=== PATIENT | female | born 1950 | race Caucasian/White ===

== ENCOUNTER 2016-10-11 21:59 | Emergency (ER) | payer OTHER ==
[2016-10-11] MEDS ORDERED: NS 1,000 ML IV ONE (22:10)
[2016-10-11] MEDS ORDERED: ONDANSETRON 4 MG/2 ML VIAL IVP ONE (22:12)
--- NOTE | 2016-10-11 22:15 | EDPHY ---
H & P HPI/ROS: HPI CHIEF COMPLAINT: Found down HISTORY OF PRESENT ILLNESS: This patient very pleasant 66-year-old female she presents emergency room by EMS after she was found down in her private residence. She tells me that she developed some right-sided weakness around 6 o 'clock this evening or 4+ hours ago, this has since resolved however this caused her to fall down she tells me that she was trying to get to the bathroom to have a bowel movement however was unable to get there. She fell on the ground and laid on the ground for approximately 4+ hours eventually she locked onto her lab top and was able to Skype. And 911 was called. She presents emergency room she is alert and orient x4, she is a GCS 15, she tells me that the right-sided weakness has now went away and resolved. She tells me she denies having any weakness to her right side, however she does feel foggy, she does tell me that she feels slow to respond. Of note upon arrival here in the emergency room she has defecated all over herself. She feels nauseous. She denies chest pain shortness of breath or headache. She denies focal weakness. Past Medical History: Hypertension, thyroid disease Social History: Lives alone, locally in [place] Family History: noncontributory ROS REVIEW OF SYSTEMS: A comprehensive 10 point review of systems is otherwise negative aside from elements mentioned in the history of present illness. Exam Constitutional GCS 15, alert and orient x4, stool all over her, triage nursing summary reviewed, vital signs reviewed, awake/alert. Eyes normal conjunctivae and sclera, EOMI, PERRLA. HENT normal inspection, atraumatic, dry mucous membranes , no epistaxis, neck supple/ no meningismus, no raccoon eyes. Respiratory clear to auscultation bilaterally, normal breath sounds, no respiratory distress, no wheezing. Cardiovascular rate normal, regular rhythm, no murmur, no edema, distal pulses normal. Gastrointestinal soft, non-tender, no rebound, no guarding, normal bowel sounds, no distension, no pulsatile mass. Genitourinary no CVA tenderness. Genital exam: When godoy Placed: This patient has herpes present external vagina. Musculoskeletal no midline vertebral tenderness, full range of motion, no calf swelling, no tenderness of extremities, no meningismus, good pulses, neurovascularly intact. Skin pink, warm, & dry, no rash, skin atraumatic. Neurologic awake, alert and oriented x 3, AAOx3, moves all 4 extremities equally specifically she has good strength of her right upper 5/5 and right lower 5/5 extremity, motor intact, sensory intact, CN II-XII intact, normal cerebellar, normal vision, slow speech, no dysarthria, no stuttering of speech Psychiatric normal mood/affect. Heme/Lymph/Immune no lymphadenopathy. Differential Diagnosis: includes but is not limited to in a particular order, TIA, acute CVA, acute stroke, acute intraparenchymal hemorrhage, dehydration, electrolyte abnormality, cardiac arrhythmia acute PA, rhabdomyolysis, renal failure, syncope Medical Decision Making: patient presents emergency room after she was found down with slow speech, according to her she initially had right-sided arm and leg weakness. This has since resolved. She denies chest pain shortness of breath or headache at this time. She does feel nauseous. Patient will have an IV established placed a full manager cardiac will obtain an EKG, she will need a chest x-ray she will need a CT scan of her head blood work including CK for rhabdomyolysis will check a urine, troponin and hydrate her. At this time she has no focal neuro deficit she is somewhat slow to respond. Re-evaluation: EKG interpretation by me on record in [employer] system. Impression time of EKG 2243: This is sinus rhythm rate of 78, incomplete right bundle branch block , no ST elevation or significant ST depression, no T-wave abnormalities, normal intervals. ED x-ray chest one view: PULMONARY EDEMA PRESENT VERSUS UNDERLYING LUNG DISEASE. (patient has had two liters of fluid) CT scan of the head w/o. The results of the study are negative for anything acute. White matter disease visualize no acute bleed no acute infarct. The study was read by Dr. Nunez I viewed the images myself on the PACS system. 2334: I spoke with the hospitalist service Dr. Dasilva seen her accepts the admission for this patient. Unclear exactly what caused this patient to go down possible TIA given the reported right-sided weakness that is now resolved. She is getting an MRI at this time. Patient be admitted to a neuro bed. Currently at this time she is hemodynamically stable no acute distress. She does have a low speech pattern her EKG is nonischemic her troponin is negative her CT head does not show a bleed. Stable for admission to neuro bed. MRI of the brain without IV contrast. The results of the study are this shows acute infarct left basal ganglia inferior region, internal capsule. I discussed the results of this study with the radiologist Dr. Nunez. NIHSS: Initial NIHSS Upon time of arrival 1point (this is for mild-mod aphasia, no signficant limitations). NO right sided weakness TIME OF NIH 1020PM 2230: This patient is not a tPA candidate due to improvement of symptoms she has no right upper extremity and right lower extremity weakness on exam. Also she is not a tPA candidate due to down time being over 4 hours. 0020: I did go and re-evaluate this patient: Stroke Alert Called due to Progression of symptoms: Her speech seems to be becoming more slow and fragmented I am concerned she is having another acute stroke. At this time I have called a stroke alert will speak with [facility]. 1235: I spoke with Dr. Pena with [facility] she will see and evaluate the patient however she agrees that she is not a tPA candidate given how far out of the window she is an initial presentation of improving symptoms. She does recommend that we get a CT angiogram head and neck due to the patient having worsening stroke like symptoms at this time and there may be an occlusion on the CT angiogram head and neck. She will log onto the tele neurology monitor and evaluate the patient. 1245: Dr. Pena, recommends laying flat, ct angio/head/neck. Recommends blood pressure being above 140 systolic. She states with lacunar infarct it can be very blood pressure dependent. Usually lying flat helps. She would like to be called back if there is a large vessel occlusion. She does agree with me this patient is not a tPA candidate is outside the window and had initial improvement of symptoms. On her exam she does endorse that the patient's right side is weak more then left however can move everything and is moving her right side. Repeat NIHSS: 1220AM: 5 (dysarthria +1, and Drift of RUE and RLE touches bed 2+ x 2) CT scan of the angiogram head and neck with IV contrast. The results of the study are this is negative for acute large vessel occlusion, unremarkable CT angiogram. The study was read by Dr. Boothe. I viewed the images myself on the PACS system. 0147: Dr. Pena has accepted this patient to [facility]. Patient be transferred by ground ambulance to their neuro ICU. No indication to fly her or critical care transport as she is completely stable and she did not get tPA. Reason for transfer is ICU monitoring for an acute stroke. We do not have an ICU bed available here at [facility]. Dr. Pena with Neurology at [facility] has accepted this patient to their facility. Appropriate transfer will be set up. 0154: Dr. Pena Has Accepted. to Neuro/ICU. Will set-up Transfer. 0155: I have canceled the admission to [facility] as we have no ICU beds. Patient be transferred to [facility] neuro ICU. At this time her neurological exam is not changed she is hemodynamically stable blood pressure 150 systolic her right-sided weakness and dysarthria is at her baseline that she has been at this evening no worsening of condition. Source: Patient, EMS Constitutional: Initial Vital Signs Temperature (C) 36.3 C 10/11/16 22:00 Heart Rate 81 10/11/16 22:00 Respiratory Rate 16 10/11/16 22:00 Blood Pressure 142/74 H 10/11/16 22:00 O2 Sat (%) 96 10/11/16 22:00 O2 Delivery Mode Nasal Cannula O2 (L/minute) 2 Allergies/Adverse Reactions: No Known Allergies Allergy (Unverified 10/11/16 22:55) Home Medications: Medication Instructions Recorded Aspirin 10/11/16 Atenolol 10/11/16 Crestor 10/11/16 HCTZ (*) 10/11/16 Synthroid 10/11/16 Medical Decision Making - Data Points Laboratory Results: Laboratory Results 10/11/16 22:27 10/11/16 22:27 10/11/16 10/11/16 22:27 22:22 WBC 16.16 H 10^3/uL (3.80-9.50) RBC 5.80 H 10^6/uL (4.18-5.33) Hgb 16.3 g/dL (12.6-16.3) Hct 47.3 H % (38.0-47.0) MCV 81.6 fL (81.5-99.8) MCH 28.1 pg (27.9-34.1) MCHC 34.5 g/dL (32.4-36.7) RDW 15.4 H % (11.5-15.2) Plt Count 352 10^3/uL (150-400) MPV 9.8 fL (8.7-11.7) Neut % (Auto) 85.1 H % (39.3-74.2) Lymph % (Auto) 11.1 L % (15.0-45.0) [place] % (Auto) 2.6 L % (4.5-13.0) Eos % (Auto) 0.2 L % (0.6-7.6) Baso % (Auto) 0.4 % (0.3-1.7) Nucleat RBC Rel Count 0.0 % (0.0-0.2) Absolute Neuts (auto) 13.73 H 10^3/uL (1.70-6.50) Absolute Lymphs (auto) 1.80 10^3/uL (1.00-3.00) Absolute Monos (auto) 0.42 10^3/uL (0.30-0.80) Absolute Eos (auto) 0.04 10^3/uL (0.03-0.40) Absolute Basos (auto) 0.07 10^3/uL (0.02-0.10) Absolute Nucleated RBC 0.00 10^3/uL (0-0.01) Immature Gran % 0.6 % (0.0-1.1) Immature Gran # 0.10 10^3/uL (0.00-0.10) PT 13.3 SEC (12.0-15.0) INR 1.02 (0.83-1.16) APTT 29.6 SEC (23.0-38.0) VBG Lactic Acid 2.2 H mmol/L (0.7-2.1) Sodium 132 L mEq/L (134-144) Potassium 3.9 mEq/L (3.5-5.2) Chloride 94 L mEq/L (97-110) Carbon Dioxide 26 mEq/l (22-31) Anion Gap 12 mEq/L (8-16) BUN 15 mg/dL (7-23) Creatinine 0.7 mg/dL (0.6-1.0) Estimated GFR > 60 Glucose 200 H mg/dL (70-100) Calcium 9.4 mg/dL (8.5-10.4) Magnesium 1.7 mg/dL (1.6-2.3) Total Bilirubin 0.6 mg/dL (0.1-1.4) Conjugated Bilirubin 0.3 mg/dL (0.0-0.5) Unconjugated Bilirubin 0.3 mg/dL (0.0-1.1) AST 18 IU/L (14-46) ALT 32 IU/L (9-52) Alkaline Phosphatase 87 IU/L (38-126) Creatine Kinase 44 IU/L (0-156) CK-MB (CK-2) Fraction 0.80 ng/mL (0-3.19) Troponin I < 0.012 ng/mL (0-0.034) NT-Pro-B Natriuret Pep 171 H pg/mL (0-125) Total Protein 7.2 g/dL (6.3-8.2) Albumin 4.2 g/dL (3.5-5.0) Lipase 112.0 IU/L (23-300) Ethyl Alcohol < 10 mg/dL (0-10) Medications Given: Discontinued Medications Sodium Chloride (Ns) 1,000 mls @ 0 mls/hr IV ONCE ONE PRN Reason: Wide Open Stop: 10/11/16 22:11 Last Admin: 10/11/16 22:29 Dose: 1,000 mls Sodium Chloride (Ns) 1,000 mls @ 0 mls/hr IV ONCE ONE PRN Reason: Wide Open Stop: 10/12/16 00:53 Last Admin: 10/12/16 00:45 Dose: 1,000 mls Ondansetron HCl (Zofran) 4 mg IVP EDNOW ONE Stop: 10/11/16 22:13 Last Admin: 10/11/16 22:30 Dose: 4 mg Departure - Dep[facility] Clinical Impression: Acute CVA (cerebrovascular accident) TIA (transient ischemic attack) Qualifiers: Transient cerebral ischemia type: unspecified Qualifier Code: (G45.9) Transient cerebral ischemic attack, unspecified Syncope Qualifiers: Syncope type: unspecified Qualifier Code: (R55) Syncope and collapse Condition: Fair
--- NOTE | 2016-10-11 22:38 | DX ---
AP upright portable chest October 11, 2016 at 2220 hours Reason for examination: Altered mental status in a 66-year-old female; no previous studies are availa ble for comparison. FINDINGS: The heart is borderline enlarged and there is mild pulmonary venous hypertension. Peribronc hial cuffing is noted. Diffuse interstitial prominence is seen possibly reflecting either pending pul monary edema or interstitial lung disease. Aortic tortuosity is noted. Spinal degenerative changes ar e seen. No significant pleural effusion is identified. IMPRESSION: 1. Suspect low-grade congestive heart failure. 2. Query airways disease. 3. Interstitial prominence could reflect cardiogenic abnormality or underlying interstitial lung dise ase.
--- NOTE | 2016-10-11 22:46 | CPEKG ---
Heart Rate: 78 RR Interval: 769 P-R Interval: 208 QRSD Interval: 110 QT Interval: 408 QTC Interval: 465 P [place]: 47 QRS [place]: 15 T Wave [place]: 34 EKG Severity - ABNORMAL ECG - EKG Impression: SINUS RHYTHM EKG Impression: PROBABLE LEFT ATRIAL ABNORMALITY EKG Impression: INCOMPLETE RIGHT BUNDLE BRANCH BLOCK Electronically Signed By: Santos Mckenna 11-Oct-2016 22:51:43
[2016-10-11 22:47] LABS: % IMMATURE GRANULYOCYTES 0.6 % (0.0-1.1); ADD DIFF? NO; ADD MORPH? NO; ADD SCAN? NO; ATYPICAL LYMPHOCYTE FLAG 0 (0-99); FRAGMENT RBC FLAG 0 (0-99); HEMATOCRIT 47.3 % (38.0-47.0); HEMOGLOBIN 16.3 g/dL (12.6-16.3); LEFT SHIFT FLG 0 (0-99); LIPEMIA HEMOLYSIS FLAG 90 (0-99); MEAN CELL HEMOGLOBIN 28.1 pg (27.9-34.1); MEAN CELL HEMOGLOBIN CONCENTR. 34.5 g/dL (32.4-36.7); MEAN CELL VOLUME 81.6 fL (81.5-99.8); MEAN PLATELET VOLUME 9.8 fL (8.7-11.7); PLATELET CLUMPS FLAG 0 (0-99); PLATELET COUNT 352 10^3/uL (150-400); RED CELL DISTRIBUTION WIDTH 15.4 % (11.5-15.2)
[2016-10-11 22:56] LABS: INR 1.02 (0.83-1.16); PROTIME(PATIENT) 13.3 SEC (12.0-15.0)
--- NOTE | 2016-10-11 22:56 | CT ---
CT Brain (Without Contrast) History: 66-year-old female found down initially presented with right-sided weakness which has subse quently resolved. No previous studies are available for comparison.. Technique: Axial computed tomographic images of the brain are obtained from the base to the vertex w ithout contrast. Images are obtained at 5 mm thickness and reformatted at 1.5 mm. Sagittal and pineda l reformations are performed and the study is reviewed at multiple window/level settings. Dose reduct ion techniques were utilized. Findings: Ventricles, cisterns, and sulci are mildly widened consistent with age appropriate atrophy . There is no hydrocephalus, midline shift/herniation, or epidural/subdural hematoma. Physiologic pankaj cifications are noted. No intraparenchymal hemorrhage or mass effect is identified. Hypodensities are noted in the periventricular and subcortical white matter bilaterally. No definite acute cortical is chemia is identified. Cerebrovascular atherosclerosis is identified. Bone windows demonstrate no disp laced fractures. Paranasal sinuses and mastoid air cells are clear. Impression: 1. Elderly brain with mild age-appropriate atrophy and probable white matter small vessel disease. 2. Negative for hemorrhage. 3. See above report for additional findings. A preliminary report was called to Dr. Keith Duggan at 2250 hours in the Emergency Department.
[2016-10-11 22:57] LABS: APTT 29.6 SEC (23.0-38.0)
[2016-10-11 23:06] LABS: ALANINE AMINOTRANSFERASE 32 IU/L (9-52); ALBUMIN 4.2 g/dL (3.5-5.0); ALKALINE PHOSPHATASE 87 IU/L (38-126); ANION GAP 12 mEq/L (8-16); ASPARTATE AMINOTRANSFERASE 18 IU/L (14-46); BILIRUBIN,TOTAL 0.6 mg/dL (0.1-1.4); BILIRUBIN-CONJUGATED 0.3 mg/dL (0.0-0.5); BILIRUBIN-UNCONJUGATED 0.3 mg/dL (0.0-1.1); CALCIUM 9.4 mg/dL (8.5-10.4); CARBON DIOXIDE 26 mEq/l (22-31); CHLORIDE 94 mEq/L (97-110); CREATININE 0.7 mg/dL (0.6-1.0); ETHANOL SERUM < 10 mg/dL (0-10); GLOMERULAR FILTRATION RATE > 60; GLUCOSE 200 mg/dL (70-100); MAGNESIUM 1.7 mg/dL (1.6-2.3); POTASSIUM 3.9 mEq/L (3.5-5.2); SODIUM 132 mEq/L (134-144); TOTAL PROTEIN 7.2 g/dL (6.3-8.2)
[2016-10-11 23:18] LABS: TROPONIN I < 0.012 ng/mL (0-0.034)
[2016-10-11 23:26] VITALS: TEMP 97.9
[2016-10-11] MEDS ORDERED: ACETAMINOPHEN 325 MG TAB PO PRN (23:31)
[2016-10-11] MEDS ORDERED: ONDANSETRON DISINTEGRATING 4 MG TAB PO PRN (23:31)
[2016-10-11] MEDS ORDERED: ONDANSETRON 4 MG/2 ML VIAL IVP PRN (23:31)
[2016-10-11] MEDS ORDERED: NS 1,000 ML IV SCH (23:45)
--- NOTE | 2016-10-12 00:14 | MR ---
MRI of the Brain (Without Contrast) Clinical Indication: Altered mental status in a 66-year-old female with history of recent right-sided weakness. Technique: T1-weighted images were acquired axially and sagittally from the foramen magnum to the ve rtex. Axial FLAIR, susceptibility-weighted, fast T2-weighted, and diffusion-weighted axial images we re obtained without contrast. Findings: There is a focal area of oval restricted diffusion in the left centrum semiovale and upper aspect of left basal ganglia adjacent to the lateral ventricle. This would be consistent with a focal area of acute ischemia. No associated hemorrhage is identified and there is no significant mass effe ct. No other ischemic regions are identified. Multiple areas of punctate white matter T2 T2 hyperinte nsity are seen involving periventricular and subcortical white matter bilaterally consistent with sma ll vessel ischemic disease. There is mild age-appropriate atrophy. No extra-axial fluid collections a re identified. Midline structures are in normal positions. Normal flow-voids are seen in the vascular structures. No sinus opacification is identified. IMPRESSION: 1. Focal region of restricted diffusion in the left centrum semiovale and upper aspect of left basal ganglia consistent with a focal area of acute ischemia. 2. Numerous focal areas of white matter T2 hyperintensity bilaterally consistent with small vessel is chemic gliotic foci. A preliminary report was called to Dr. Keith Duggan at 1215 hours in the Emergency Department.
[2016-10-12 00:25] LABS: COLOR YELLOW; LEUKOCYTE ESTERASE,URINE NEGATIVE (NEGATIVE); NITRITE,URINE NEGATIVE (NEGATIVE)
[2016-10-12] MEDS ORDERED: IOPAMIDOL (ISOVUE 370) 100 ML BTL IV ONE (00:40)
[2016-10-12] MEDS ORDERED: NS 1,000 ML IV ONE (00:52)
[2016-10-12 01:23] VITALS: RESP 16
[2016-10-12 04:26] VITALS: BP 145/89; PULSE 79; O2SAT 96
[2016-10-12] MEDS ORDERED: ASPIRIN 325 MG TAB PO SCH (09:00)
[2016-10-12] MEDS ORDERED: ASPIRIN EC 325 MG TAB PO SCH (09:00)
--- NOTE | 2016-10-12 12:00 | CT ---
CT Angiography of the Head Clinical Indications: CVA. R29.818 Neurological changes strongly suggesting intracerebral aneurysm. Technique: During automated power injection of 85 mL of Isovue-370, thinly collimated spiral (volume tric) multidetector helical CT was performed through the head. Independent three-dimensional [employer] workstation was used for additional manipulations of images by the radiologist. Dose reduction tech niques were utilized. Findings: The [place] and its branches are normal. No evidence of aneurysm of vascular malf ormation. No occlusions are found. Impression: Normal. CT angiogram of the [place]. The study was performed as an emergency on-call case and discussed by telephone with Dr. Duggan at 1: 20 AM. TThe final interpretation is concordant with the original communication.
--- NOTE | 2016-10-12 12:06 | CT ---
CT Angiogram Neck History: CVA.. Comparison: MRI brain October 11, 2016.. Technique: Axial contrast-enhanced images were obtained from the skull base through the thoracic inle t following the uneventful intravenous administration of 85 mL Isovue-370. Multiplanar reformations were performed. Dose reduction techniques were utilized. Findings: The carotid bifurcations are widely patent bilaterally, with minimal calcified plaque formation bilat erally. No evidence of flow-limiting stenosis. Internal carotid arteries are widely patent bilaterall y. The vertebral arteries are also widely patent bilaterally. Impression: Negative CT angiogram of the carotid and vertebral basilar system in the neck. No evidenc e of flow-limiting stenosis The study was performed as an emergency on-call case and discussed by telephone with Dr. Duggan at 12 0 hrs. The final interpretation is concordant with the original communication. . Stenoses are calculated using [place] Symptomatic Carotid Endarterectomy Trial (NASCET) criter ia.
== END 2016-10-12 02:30 | disposition short-term general hospital (02) ==
LOC: EDUNIT# → UNDOADMIN 23:32
DX: I63.9 Cerebral infarction, unspecified (principal); I10 Essential (primary) hypertension
CPT/HCPCS: 70450; 70496; 70498; 70551; 71010; 93005; 96361; 96374; 99285; J2405; Q9967; 80305; 82947-QW; G0480

== ENCOUNTER → 2016-11-12 | Outpatient (CLI) | payer OTHER | LOC: BHFA 10:30 | PROVIDERS: ATTEND Internal Medicine Cardiovascular Disease | DX: I71.2 Thoracic aortic aneurysm, without rupture (principal) ==

== ENCOUNTER 2016-11-25 07:32 | Day surgery (SDC) | payer OTHER ==
[2016-11-25] MEDS ORDERED: diphenhydrAMINE 25 MG CAP PO ONE ×2 (07:34→07:55)
[2016-11-25] MEDS ORDERED: DIAZEPAM 5 MG TAB PO ONE (07:34)
[2016-11-25] MEDS ORDERED: FAMOTIDINE 20 MG TAB PO ONE (07:34)
[2016-11-25] MEDS ORDERED: NS 1,000 ML IV ONE (07:34)
[2016-11-25] MEDS ORDERED: ASPIRIN EC 325 MG TAB PO ONE ×2 (07:34→07:55)
--- NOTE | 2016-11-25 07:54 | CPEKG ---
Heart Rate: 77 RR Interval: 779 P-R Interval: 164 QRSD Interval: 94 QT Interval: 384 QTC Interval: 435 P [place]: 53 QRS [place]: 10 T Wave [place]: 28 EKG Severity - NORMAL ECG - EKG Impression: SINUS RHYTHM Preliminary Awaiting MD Review
[2016-11-25] MEDS ORDERED: FAMOTIDINE 20 MG TAB ONE (07:55)
[2016-11-25] MEDS ORDERED: DIAZEPAM 5 MG TAB ONE (07:55)
[2016-11-25 08:14] LABS: % IMMATURE GRANULYOCYTES 0.2 % (0.0-1.1); ABSOLUTE IMMATURE GRANULOCYTES 0.03 10^3/uL (0.00-0.10); ADD DIFF? NO; ADD MORPH? NO; ADD SCAN? NO; ATYPICAL LYMPHOCYTE FLAG 0 (0-99); FRAGMENT RBC FLAG 20 (0-99); HEMATOCRIT 43.2 % (38.0-47.0); HEMOGLOBIN 14.3 g/dL (12.6-16.3); LEFT SHIFT FLG 0 (0-99); LIPEMIA HEMOLYSIS FLAG 80 (0-99); MEAN CELL HEMOGLOBIN 27.4 pg (27.9-34.1); MEAN CELL HEMOGLOBIN CONCENTR. 33.1 g/dL (32.4-36.7); MEAN CELL VOLUME 82.8 fL (81.5-99.8); MEAN PLATELET VOLUME 10.9 fL (8.7-11.7); PLATELET CLUMPS FLAG 20 (0-99); PLATELET COUNT 264 10^3/uL (150-400); RED BLOOD CELL COUNT 5.22 10^6/uL (4.18-5.33); RED CELL DISTRIBUTION WIDTH 15.6 % (11.5-15.2)
[2016-11-25 08:31] LABS: ANION GAP 14 mEq/L (8-16); CALCIUM 9.7 mg/dL (8.5-10.4); CARBON DIOXIDE 23 mEq/l (22-31); CHLORIDE 106 mEq/L (97-110); CHOLESTEROL 93 mg/dL (140-220); CHOLESTEROL/HDL RATIO 1.79 RATIO (1.00-4.44); CREATININE 0.8 mg/dL (0.6-1.0); GLOMERULAR FILTRATION RATE > 60; GLUCOSE 144 mg/dL (70-100); HIGH DENSITY LIPOPROTEIN 52 mg/dL (40-85); LDL/HDL RATIO 0.44 RATIO (1.00-3.22); LOW DENSITY LIPOPROTEIN 23 mg/dL (80-100); MAGNESIUM 1.8 mg/dL (1.6-2.3); NON-HIGH DENSITY LIPOPROTEIN 41 mg/dL (90-129); POTASSIUM 4.2 mEq/L (3.5-5.2); SODIUM 143 mEq/L (134-144); TRIGLYCERIDE 93 mg/dL (35-135); VERY LOW DENSITY LIPOPROTEINS 18 mg/dL (8-25)
[2016-11-25] MEDS ORDERED: MIDAZOLAM 2 MG/2 ML VIAL ONE (08:39)
[2016-11-25] MEDS ORDERED: fentaNYL 100 MCG/2 ML INJ ONE ×2 (08:39→09:45)
[2016-11-25] MEDS ORDERED: LIDOCAINE 1% 30 ML SDV ONE ×2 (08:39→09:45)
[2016-11-25] MEDS ORDERED: IOPAMIDOL (ISOVUE-370) 150 ML BTL IV ONE (08:40)
[2016-11-25 08:54] LABS: INR 1.03 (0.83-1.16); PROTIME(PATIENT) 13.4 SEC (12.0-15.0)
--- NOTE | 2016-11-25 13:51 | CPIP ---
DATE OF PROCEDURE: 11/25/2016 PROCEDURES: 1. Coronary angiography. 2. Left ventriculography. INDICATION: This coronary angiography is being performed in anticipation of thoracic aortic aneurys m repair. ACCESS: Patient was prepped and draped in a sterile fashion. 1% lidocaine was used to anesthetize the left inguinal region. A 6-Thai introducer sheath was placed selectively into the left common femoral artery via modified Seldinger technique. CORONARY ANGIOGRAPHY: A 6-Thai JL4 was advanced to the left main coronary artery and images obtai ian. The left main coronary artery bifurcated into an LAD and circumflex coronary arteries. The le ft main coronary artery appeared normal. The left anterior descending coronary artery gave rise to 1 prominent diagonal branch. The left anterior descending coronary artery had a segmental 30% steno sis in the proximal segment and a segmental 20% stenosis in the distal segment. The diagonal artery appeared normal. The circumflex coronary artery is a moderate-sized vessel. The circumflex pineda ry artery is nondominant. The circumflex coronary artery gave rise to 2 OM branches. The circumfle x coronary artery had mild luminal regularities throughout. There is no stenosis greater than 15%. The first OM artery had a proximal 10% stenosis present. The second OM artery had a proximal 20% s tenosis present. A 6-Thai JR4 was advanced to the right coronary artery and images obtained. The right coronary artery is dominant. The right coronary artery had mild diffuse disease in the mid t o distal segments. There is no stenosis greater than 20%. LEFT VENTRICULOGRAPHY: A 6-Thai pigtail catheter was advanced in the left ventricle and images ob tained. Left ventricle is normal in size and had normal systolic function, estimated ejection fract ion of 60%. Left ventricular end-diastolic pressure was 13 mmHg. The ascending aorta appeared to b e significantly dilated during imaging. COMPLICATIONS: None. CONCLUSIONS: 1. Mild coronary artery disease without flow limitation. 2. Normal left ventricular size and systolic function. /[id number]/MODL
== END 2016-11-25 13:45 | disposition home or self-care (01) ==
LOC: FCATH 07:32
PROVIDERS: ATTEND Internal Medicine Cardiovascular Disease
PROC: B2111ZZ Fluoroscopy of Multiple Coronary Arteries using Low Osmolar Contrast (ICD-10-PCS; principal; 2016-11-25)
PROC: B2151ZZ Fluoroscopy of Left Heart using Low Osmolar Contrast (ICD-10-PCS; principal; 2016-11-25)
PROC: 4A023N7 Measurement of Cardiac Sampling and Pressure, Left Heart, Percutaneous Approach (ICD-10-PCS; principal; 2016-11-25)
DX: Z01.810 Encounter for preprocedural cardiovascular examination (principal); I71.2 Thoracic aortic aneurysm, without rupture
CPT/HCPCS: C1760; J1644; J2250; J3010; Q9967

== ENCOUNTER 2016-12-26 06:58 | Inpatient (IN) | payer OTHER ==
[2016-12-24 16:10] LABS: HEMOGLOBIN A1C 7.1 % (4.0-6.0)
[~2016-12-26 06:58] MED LIST: ADENOSINE 6 MG/2 ML VIAL ONE; ALBUMIN 5% 250 ML BOTTLE IV ONE; AMINOCAPROIC ACID 5 GM/20 ML VIAL IV ONE; AMINOCAPROIC ACID 5 GM/20 ML VIAL ONE; AMIODARONE HCL 150 MG/3 ML VIAL ONE; CALCIUM CHLORIDE 1 GM/10 ML INJ ONE; CITRATE DEXTROSE SOLN 500 ML BAG MISC ONE; CITRATE DEXTROSE SOLN 500 ML BAG ONE; DOPamine/DEXTROSE/250 ML BAG IV ONE; HEPARIN 10,000 UNIT/10 ML MDV ONE; INSULIN REGULAR HUMAN 100 UNIT in NS 100 ML IV ONE; LIDOCAINE 1% 2 ML INJ ONE; LIDOCAINE 1% 5 ML SDV ID PRN; LIDOCAINE 2% 100 MG/5 ML SYR ONE; MAGNESIUM SULFATE 1 GM/2 ML VIAL ONE; MANNITOL 25% 12.5 GM/50 ML VIAL IV ONE; MILRINONE/DEXTROSE/100 ML BAG IV ONE; MUPIROCIN 2% 22 GM OINT NS ONE; NA BICARBONATE 50 MEQ/50 ML VIAL ONE; NOREPINEPHRINE BITARTRATE 16 MG in NS 250 ML IV ONE; NS 1,000 ML IV ONE; PHENYLEPHRINE HCL 50 MG in NS 250 ML IV ONE; POTASSIUM Cl (KCl) 20 MEQ/50 ML BAG IV ONE; PROTAMINE SULFATE 50 MG/5 ML VIAL IVP ONE; SODIUM BICARBONATE 20 MEQ, LIDOCAINE 1% 10 ML in NORMOSOL-R 1,000 ML MISC ONE; ceFAZolin 1 GM VIAL ONE; ceFAZolin 2 GM/DEXTROSE 100 ML IV ONE; methylPREDNISolone SOD SUCC 1 GM/8 ML VIAL ONE; niCARdipine/NACL 200 ML IV SCH; niCARdipine/NACL/200 ML BAG IV ONE
[2016-12-26] MEDS ORDERED: LIDOCAINE 1% 5 ML SDV ID PRN (06:59)
[2016-12-26] MEDS ORDERED: LR 1,000 ML IV ONE (06:59)
[2016-12-26] MEDS ORDERED: MINERAL OIL 10 ML VIAL TP ONE (08:03)
[2016-12-26] MEDS ORDERED: PROPOFOL/EMULSION 500 MG/50 ML BOTTLE IV ONE ×3 (08:20→11:39)
[2016-12-26] MEDS ORDERED: SUFentanil 250 MCG/5 ML AMP ONE (08:20)
[2016-12-26] MEDS ORDERED: MIDAZOLAM 2 MG/2 ML VIAL ONE (08:28)
[2016-12-26] MEDS ORDERED: ROCURONIUM 100 MG/10 ML VIAL ONE (10:31)
[2016-12-26] MEDS ORDERED: MAGNESIUM SULF 2 GM/WATER 50 ML BAG IV ONE (13:02)
[2016-12-26] MEDS ORDERED: ONDANSETRON 4 MG/2 ML VIAL ONE (13:09)
[2016-12-26] MEDS ORDERED: SUGAMMADEX SODIUM 200 MG/2 ML VIAL IVP ONE (13:10)
[2016-12-26] MEDS ORDERED: SKIN ADHESIVE (DERMABOND) 1 EACH TP ONE (13:12)
[2016-12-26] MEDS ORDERED: SODIUM CL NASAL 45 ML BTL EACHNARE PRN (13:15)
[2016-12-26] MEDS ORDERED: POLYETHYLENE GLYCOL 3350 17 GM PKT PO PRN (13:15)
[2016-12-26] MEDS ORDERED: D50W 25 GM/50 ML SYR IVP PRN (13:15)
[2016-12-26] MEDS ORDERED: NS 1,000 ML IV SCH (13:15)
[2016-12-26] MEDS ORDERED: METOCLOPRAMIDE 10 MG/2 ML VIAL IVP PRN (13:15)
[2016-12-26] MEDS ORDERED: ONDANSETRON 4 MG/2 ML VIAL IVP PRN (13:15)
[2016-12-26] MEDS ORDERED: LACTULOSE 20 GM/30 ML UDCUP PO PRN (13:15)
[2016-12-26] MEDS ORDERED: BISACODYL 10 MG SUPP PR PRN (13:15)
[2016-12-26] MEDS ORDERED: MEPERIDINE 25 MG/ML SYR IVP PRN (13:15)
[2016-12-26] MEDS ORDERED: MAGNESIUM SULF 2 GM/WATER 50 ML IV ONE (13:15)
[2016-12-26] MEDS ORDERED: CEPACOL LOZENGE PO PRN (13:15)
[2016-12-26] MEDS ORDERED: ACETAMINOPHEN 650 MG SUPP PR PRN (13:15)
[2016-12-26] MEDS ORDERED: PANTOPRAZOLE SODIUM 40 MG in NS 100 ML IV ONE (13:15)
[2016-12-26] MEDS ORDERED: ACETAMINOPHEN 325 MG TAB PO PRN (13:15)
[2016-12-26] MEDS ORDERED: MAGNESIUM HYDROXIDE 30 ML UDCUP PO PRN (13:15)
[2016-12-26] MEDS ORDERED: ONDANSETRON DISINTEGRATING 4 MG TAB PO PRN (13:15)
[2016-12-26] MEDS ORDERED: INSULIN REGULAR HUMAN 100 UNIT in NS 100 ML IV SCH (13:30)
--- NOTE | 2016-12-26 14:03 | POSTOPPROG ---
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
--- NOTE | 2016-12-26 14:11 | CPEKG ---
Heart Rate: 79 RR Interval: 759 P-R Interval: 188 QRSD Interval: 92 QT Interval: 476 QTC Interval: 546 P [place]: 83 QRS [place]: 79 T Wave [place]: 74 EKG Severity - ABNORMAL ECG - EKG Impression: SINUS RHYTHM EKG Impression: MINIMAL ST DEPRESSION, ANTERIOR LEADS EKG Impression: PROLONGED QT INTERVAL Electronically Signed By: Azam Roper 26-Dec-2016 16:26:59
--- NOTE | 2016-12-26 15:31 | GOP ---
[f rep st] OPERATIVE REPORT DATE OF OPERATION: 12/26/2016 SURGEON: Migel Mary DO ARBORICULTURIST: Bryce Murphy PA-C. ANESTHESIOLOGIST: Uri Bowman MD. PREOPERATIVE DIAGNOSIS: 1. Ascending, transverse, and descending thoracic aneurysm with emely-aorta syndrome. 2. Moderate aortic insufficiency. POSTOPERATIVE DIAGNOSIS: 1. Ascending, transverse, and descending thoracic aneurysm with emely-aorta syndrome. 2. Moderate aortic Insufficiency. 3. Evidence of atherosclerotic plaque in the transverse arch. PROCEDURE PERFORMED: 1. Hemiarch replacement and ascending aorta replacement under circulatory arrest with low-flow perf usion of the brain with antegrade cerebral perfusion. 2. Sinotubular junction reduction for correction of aortic insufficiency. 3. AtriClip application to the left atrial appendage. FINDINGS: INDICATIONS: This patient presented with a stroke several months prior with hemiparesis. She under went rehab with almost complete resolution of her hemiparetic state. During that evaluation, she wa s found to have a large 5-1/2 to 6 cm ascending aorta. She was sent to dc for repair. CT scan reve aled a large ascending, moderate-sized transverse, and a moderate-sized thoracoabdominal aneurysm. Catheterization revealed no significant coronary disease. She had moderate aortic insufficiency wit h a trileaflet valve. She was consented for surgery. DESCRIPTION OF PROCEDURE: She was brought to the operating room, intubated. Monitoring lines were placed. She was prepped and draped in sterile classical manner. The right axillary artery was init ially exposed. It was a soft vessel. We then exposed the aorta through a sternotomy, which was sonu te thin-walled and bluish in discoloration. It was most aneurysmal in the midportion; it tapered to 4 cm at the arch, where it remained 4 cm across the arch and then grew to 4-1/2 on the descending t o 5. Initially, I was going to do an elephant trunk procedure, however, after re-evaluating her kana cending thoracic aorta, with her comorbidities, I felt that the safest, most expeditious would be to do a hemiarch replacement, reducing the transverse arch, and in the future, if necessary, we could transpose the left subclavian to the carotid and do an endo graft in 8 or 10 years, if necessary, wi th serial observation in the interim. After heparinization, I sewed an 8 mm Hemashield graft end-to -side to the axillary artery without difficulty. It was connected to an antegrade catheter. Right atrial cannula was placed, as were antegrade and retrograde cardioplegia. Transesophageal echo reve aled moderate aortic insufficiency with a trileaflet valve. The sinotubular junction was markedly d isplaced and widened. Cardiopulmonary bypass was begun. Intermittent antegrade and retrograde card ioplegia were performed, while systemic cooling to electrical quiescence on the EEG was obtained. W e then perfused for a while longer than that, with nasopharyngeal temperatures below 20. During yong t time, we inspected the aortic valve, which was trileaflet. There was good coaptation, but obvious ly markedly displaced sinotubular junction and commissures. I felt that reducing the sinotubular ju ncture would correct most of her aortic insufficiency. When she was cold enough, we then placed her in deep Trendelenburg. I put a clamp across the base of the innominate artery and continued to per fuse the brain at 10 cc/kg, with a right radial A line reading pressures of 30 to 50. The head had been packed in ice. Steroids and propofol were given. We then fashioned a 24 mm Hemashield graft i n a beveled fashion, and sutured that to the arch, extending beyond the left subclavian, identifying the vagus and recurrent laryngeal nerves and preserving those. This was reinforced at several poin ts. She had approximately a 17-minute low-flow arrest. There was blood emanating from all head ves sels and through the descending thoracic aorta from the axillary perfusion that had continued. BioG lue was used on the outside surface of the aortic anastomosis. This was then clamped. Full perfusi on was resumed after shaking the head and de-airing the graft. Re-warming was begun, while the prox imal anastomosis was completed with continuous running 3-0 Prolene reinforced in several sites. We then placed a clip across the left atrial appendage with complete flush occlusion. The cross-clamp was removed with suction on the ascending aortic vent. When no further air was identified, she was weaned from bypass. The heparin was reversed with protamine. Echo revealed no aortic insufficiency with good leaflet motion and obviously reduced sinotubular junction. It should be noted that I als o reduced and almost completely eliminated the noncoronary sinus to eliminate any future sinus enlar gement, although her sinuses appeared to be essentially normal. The heparin was reversed with prota mine. The cannula was removed and oversewn. Two ventricular pacing wires, 1 right pleural, and 2 m ediastinal drains were placed. The thymic fat and pericardium were closed. The chest was closed in standard fashion. The 8 mm Hemashield graft was transected about a centimeter distal to the anasto mosis. It was oversewn with 2 large clips applied. There were good distal pulses in the axillary a rtery beyond the graft anastomosis. This wound was closed in standard fashion. Patient was returne d to ICU in stable condition. /[id number]/MODL
[2016-12-26] MEDS: POTASSIUM Cl (KCl) 50 ML IV PRN ×2 (16:15→16:57)
[2016-12-26 16:19] LABS: BICARBONATE 23 mEq/L (22-26); MEASURED OXYGEN SATURATION 90 % (92-95); PCO2 51 mmHg (34-38); PO2 72 mmHg (65-75); TCO2 24 mEq/L (23-27)
[2016-12-26] MEDS: fentaNYL 100 MCG/2 ML INJ IVP PRN ×4 (18:34→23:08)
[2016-12-26 19:10] LABS: CALCULATED OXYGEN SATURATION 94 % (92-95)
[2016-12-26 19:43] LABS: BASE EXCESS -4.4 mEq/L (-2.5-2.5); BICARBONATE 22 mEq/L (22-26); MEASURED OXYGEN SATURATION 92 % (92-95); PCO2 46 mmHg (34-38); PO2 75 mmHg (65-75); TCO2 23 mEq/L (23-27)
[2016-12-26 19:45] LABS: O2 CONCENTRATIION 50 % (0-100); P/F RATIO 150 RATIO; PATIENT RATE 16; PRESSURE SUPPORT 7; SIMV YES
--- NOTE | 2016-12-26 20:22 | GCON ---
[f rep st] CONSULTATION PULMONARY CRITICAL CARE CONSULTATION NOTE DATE OF CONSULTATION: 12/26/2016 REASON FOR CONSULTATION: Intensive care unit evaluation and medical management following open heart surgery. HISTORY: The patient is a 66-year-old who is status post open heart surgery with replacement of the ascending aorta and repair of the aortic valve for correction of aortic insufficiency. Clipping of the left atrial appendage was also performed. She did not require blood or blood products. She was returned to the intensive care unit following the surgery on the ventilator. She was not extubated postoperatively in part secondary to a long history of tobacco abuse and a diagnosis of likely COPD. Her recent history is remarkable for an acute stroke in September presenting with right-sided hemiparesis. MRI documented a left-sided subcortical infarct. Following initial care, she was discharged to inpatient rehabilitation. She eventually was discharged from there. Other problems identified during her hospitalizations included the ascending aortic aneurysm and aortic insufficiency , full systemic hypertension, type 2 diabetes, bilateral small pulmonary nodules which will require followup, and probable COPD. She has a long history of tobacco use. She quit smoking only a few months ago. Other medical problems include hyperlipidemia and hypothyroidism, on replacement. ALLERGIES: Sulfa preparations. She also has some food intolerance including eggs, gluten, soy and sugar, by report. SOCIAL HISTORY: The patient is , with a supportive family. FAMILY HISTORY: Noncontributory. REVIEW OF SYSTEMS: Unable to obtain. REAL ESTATE SALES SUPERVISOR: Dr. Jimbo Gonzalez. PHYSICAL EXAMINATION: GENERAL: This reveals a woman who is unresponsive currently, on the ventilator. She did wake up earlier and was given a small dose of fentanyl. She is on 50% FIO2 and appears comfortable. VITAL SIGNS: Blood pressure is 106/52, heart rate 79, with sinus rhythm on the monitor. Saturations are 94%. She is afebrile. HEENT: Remarkable for endotracheal tube being in place. There is no NG tube. Pupils appear equal. There is a triple-lumen catheter in the right IJ. CHEST: Clear anteriorly. Breath sounds are diminished at the bases. There are few secretions, no rhonchi, no significant rales. Heart tones are quite distant. No abnormalities are noted. ABDOMEN: Somewhat distended. Some bowel sounds are present, but diminished. A chest tube/mediastinal tube is in place. The Andrea catheter is in place. There is good urine output. NEUROLOGIC: Examination cannot be currently assessed. EXTREMITIES: Lower extremities are remarkable for trace edema. Sequential compression devices are in place. DATABASE: No chest x-ray or laboratory values are currently available postoperatively. No chest x-ray is available postoperatively. Chemistries show sodium 145, potassium 3.4, BUN 21, creatinine 0.7. Serum bicarb is 23. Glucoses have ranged between 170 and 212. She is on an insulin drip. Arterial blood gas postoperatively showed a pH of 7.27, pCO2 of 51, and pO2 of 72. Ventilatory settings are not listed. ASSESSMENT: 1. Status post open heart surgery/ascending aorta replacement and aortic valve repair. Hemodynamics are stable. She is doing well postoperatively. 2. Respiratory failure. This is in the post open heart setting. Extubation will be delayed secondary to her chronic obstructive pulmonary disease. This will likely take place tomorrow morning if she is doing well, over breathing the ventilator, etc. Currently, she is on 50% FiO2. Oxygen will be weaned as tolerated. She is not currently over-breathing the ventilator. She is not requiring any sedation currently or significant pain medications. If needed, Precedex could be used for mild sedation overnight with out suppressing respiratory function. 3. Metabolic: Elevated blood glucoses secondary to type 2 diabetes. She is on an insulin drip per protocol. 4. Deep venous thrombosis prophylaxis: Subcutaneous heparin. 5. Gastrointestinal prophylaxis: Pantoprazole. 6. History of pulmonary nodules, to be followed in the future as an outpatient. 7. History of systemic hypertension. 8. History of previous stroke. 9. COPD. She has a long history of tobacco abuse, having quit smoking in September. Per her family she is not going to restart. She has not been on oxygen, not been on any inhalers. She appears to have mild or possibly moderate disease. Inhaled therapies here will be given. Further evaluation as an outpatient after she recovers from her heart surgery will be indicated. PLAN/RECOMMENDATIONS: The patient will be kept on the ventilator for now. Albuterol will be added per ventilatory protocol on a p.r.n. basis if needed. Xopenex can be used postextubation. She will be weaned per protocols; however, I would like to see her on 40% FIO2 with adequate spontaneous ventilatory parameters prior to considering extubation. Laboratory and chest x-ray will be followed. Blood gas will be followed. /[id number]/MODL MTDD
[2016-12-26] MEDS: ALBUMIN 5% 250 ML IV PRN ×2 (20:36→21:54)
[2016-12-26] MEDS ORDERED: DEXMEDETOMIDINE HCL 400 MCG in NS 100 ML IV SCH (21:00)
[2016-12-26] MEDS: CHLORHEXIDINE GLUCONATE 15 ML UDL PO SCH (21:29)
[2016-12-26] MEDS: ceFAZolin 2 GM/DEXTROSE 100 ML IV SCH (22:28)
[2016-12-26] MEDS: MUPIROCIN 2% 22 GM OINT NS SCH (23:32)
[2016-12-27] MEDS: fentaNYL 100 MCG/2 ML INJ IVP PRN (00:08)
[2016-12-27] MEDS: ALBUMIN 5% 250 ML IV PRN (00:19)
[2016-12-27 00:20] LABS: HEMATOCRIT 29.6 % (38.0-47.0); HEMOGLOBIN 9.7 g/dL (12.6-16.3); MEAN CELL HEMOGLOBIN 27.2 pg (27.9-34.1); MEAN CELL HEMOGLOBIN CONCENTR. 32.8 g/dL (32.4-36.7); MEAN CELL VOLUME 82.9 fL (81.5-99.8); RED BLOOD CELL COUNT 3.57 10^6/uL (4.18-5.33); RED CELL DISTRIBUTION WIDTH 16.1 % (11.5-15.2)
[2016-12-27 05:05] LABS: BASE EXCESS -2.6 mEq/L (-2.5-2.5); BICARBONATE 21 mEq/L (22-26); MEASURED OXYGEN SATURATION 94 % (92-95); PCO2 33 mmHg (34-38); PO2 69 mmHg (65-75); TCO2 22 mEq/L (23-27)
[2016-12-27 05:07] LABS: END TIDAL CO2 33; O2 CONCENTRATIION 50 % (0-100); P/F RATIO 138 RATIO; PATIENT RATE 5; SIMV YES
[2016-12-27 05:16] LABS: % IMMATURE GRANULYOCYTES 0.4 % (0.0-1.1); ABSOLUTE IMMATURE GRANULOCYTES 0.06 10^3/uL (0.00-0.10); ADD DIFF? NO; ADD MORPH? NO; ADD SCAN? NO; ATYPICAL LYMPHOCYTE FLAG 0 (0-99); FRAGMENT RBC FLAG 0 (0-99); HEMATOCRIT 28.6 % (38.0-47.0); HEMOGLOBIN 9.2 g/dL (12.6-16.3); LEFT SHIFT FLG 10 (0-99); LIPEMIA HEMOLYSIS FLAG 80 (0-99); MEAN CELL HEMOGLOBIN 27.3 pg (27.9-34.1); MEAN CELL HEMOGLOBIN CONCENTR. 32.2 g/dL (32.4-36.7); MEAN CELL VOLUME 84.9 fL (81.5-99.8); MEAN PLATELET VOLUME 10.9 fL (8.7-11.7); PLATELET CLUMPS FLAG 0 (0-99); PLATELET COUNT 123 10^3/uL (150-400); RED BLOOD CELL COUNT 3.37 10^6/uL (4.18-5.33); RED CELL DISTRIBUTION WIDTH 16.2 % (11.5-15.2)
[2016-12-27 05:21] LABS: ANION GAP 10 mEq/L (8-16); CALCIUM 8.4 mg/dL (8.5-10.4); CARBON DIOXIDE 21 mEq/l (22-31); CHLORIDE 115 mEq/L (97-110); CREATININE 0.8 mg/dL (0.6-1.0); GLOMERULAR FILTRATION RATE > 60; GLUCOSE 111 mg/dL (70-100); POTASSIUM 4.7 mEq/L (3.5-5.2); SODIUM 146 mEq/L (134-144)
[2016-12-27] MEDS: ceFAZolin 2 GM/DEXTROSE 100 ML IV SCH ×3 (05:46→21:13)
[2016-12-27] MEDS: HEPARIN 5,000 UNIT/0.5 ML SYR SC SCH ×3 (05:49→21:13)
--- NOTE | 2016-12-27 06:50 | SOAPPROG ---
SOAP Progress Note Assessment/Plan: POD #1: Hemiarch and ascending aorta replacement with sinotubular reduction using a #24 Hemashield graft and prophylactic exclusion of left atrial appendage with AtriClip Ascending and transverse aortic aneurysm with moderate AI s/p ascending aorta and hemiarch replacement with reduction of sinotubular junction. Weaned from CPB with resolution of AI, without the need for pacing, inotropic/pressure support or need for blood product transfusions. Open eyes spontaneously and moves all 4 extremities on command. HD stable in SR and tolerating SIMV (50%). - Wean to extubate - AL/FC out and CTs to bulb suction later today - OOB to chair, PT for ambulation - BB when appropriate / ASA for thromboprophylaxis - SCDs/heparin SQ for thromboprophylaxis Acute blood loss anemia - HCT 28.6 this AM with serosanguineous CT output - continue to monitor Descending aortic aneurysm - BP control and outpatient patient management with serial CTs Pre-operative CVA with residual dysarthria and RUE weakness - Swallowing study prior to PO / strict NPO - PT/OT DM type II, recently diagnosed (HgbA1c 7.2) - ISS once off insulin gtt - Start home Metformin once taking PO Subjective: Follows commands on vent. Objective: Vital Signs Temp Pulse Resp BP Pulse Ox 37.1 C 65 14 101/48 L 93 12/27/16 06:00 12/27/16 06:00 12/27/16 06:00 12/27/16 06:00 12/27/16 06:00 Laboratory Results 12/27/16 04:45 12/27/16 04:45 12/26/16 12/27/16 12/28/16 05:59 05:59 05:59 Intake Total 1763 Output Total 2076 Balance -313 Physical Exam - Physical Exam General Appearance: alert, no apparent distress EENT: No scleral icterus (R), No scleral icterus (L) Neck: normal inspection Respiratory: No respiratory distress Cardiac/Chest: regular rate, rhythm Abdomen: non-tender, soft, No distended Skin: normal color, warm/dry Extremities: No pedal edema Neuro/Psych: no motor/sensory deficits, alert ICD10 Worksheet Patient Problems: Problems Problem Status Onset Aortic aneurysm Acute Diabetes 1.5, managed as type 2 Acute S/P aortic aneurysm repair 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
[2016-12-27] MEDS ORDERED: PANTOPRAZOLE SODIUM 40 MG TAB PO SCH (09:00)
[2016-12-27] MEDS ORDERED: ASPIRIN 81 MG CHEWABLE TAB TUBE PRN (09:00)
[2016-12-27] MEDS ORDERED: KETOROLAC 30 MG/1 ML SDV ONE (09:38)
[2016-12-27] MEDS ORDERED: KETOROLAC 15 MG/1 ML SDV ONE (09:44)
[2016-12-27] MEDS: ASPIRIN 81 MG CHEWABLE TAB PO SCH (10:06)
[2016-12-27] MEDS: CHLORHEXIDINE GLUCONATE 15 ML UDL PO SCH ×2 (10:06→21:17)
[2016-12-27] MEDS: MUPIROCIN 2% 22 GM OINT NS SCH ×2 (10:06→21:17)
[2016-12-27] MEDS: SENNOSIDES/DOCUSATE SODIUM TAB PO SCH ×2 (10:07→21:13)
[2016-12-27] MEDS: KETOROLAC 15 MG/1 ML SDV IVP SCH ×3 (10:07→18:01)
[2016-12-27] MEDS: PANTOPRAZOLE SODIUM 40 MG in NS 100 ML IV SCH (11:53)
[2016-12-27] MEDS ORDERED: FUROSEMIDE 20 MG/2 ML VIAL IVP ONE (13:35)
[2016-12-27] MEDS ORDERED: PARAMETERS MISC PRN (14:40)
[2016-12-27] MEDS ORDERED: D50W 25 GM/50 ML VIAL IVP PRN (14:40)
[2016-12-27] MEDS ORDERED: D50W 25 GM/50 ML SYR IVP PRN (14:40)
--- NOTE | 2016-12-27 17:01 | PDINTPN ---
Pr Intern Progress Note Assessment/Plan: Assessment: Status post open heart surgery with aortic aneurysm repair and aortic valve repair. Doing well. Postop respiratory failure, resolved. Extubated without difficulty this morning. History of tobacco abuse, probable mild to moderate COPD. This needs to be better evaluated as an outpatient. History of pulmonary nodules: To be followed as an outpatient. DVT prophylaxis: Subcu heparin GI prophylaxis: Pantoprazole History of previous stroke Plan: The patient will be kept in the intensive care unit today. Following extubation she will be mobilized as tolerated, began to work with PT/OT. Laboratory and chest x-ray will be followed. Xopenex can be given as needed by nebulizer. Continue present medications, oxygen. Cardiac issues per [facility]. Will need outpatient pulmonary follow-up for her lung nodules and pulmonary status. This can be done after she completed cardiac rehab. Subjective: Extubated this morning. Has done well since. Denies shortness of breath or significant cough or mucus. Objective: Vital Signs Temp Pulse Resp BP Pulse Ox 36.6 C 78 19 116/61 94 12/27/16 14:00 12/27/16 16:00 12/27/16 16:00 12/27/16 16:00 12/27/16 16:00 Laboratory Results 12/27/16 04:45 12/27/16 04:45 12/26/16 12/27/16 12/28/16 05:59 05:59 05:59 Intake Total 1763 Output Total 2136 305 Balance -313 -305 Laboratory Tests 12/27/16 04:45 pCO2 33 L pO2 69 ABG pH 7.42 O2 Concentration % 50 Actual Respiration Rate 5 Set Respiration Rate 16 SIMV YES Tidal Volume 600 CXR: Mild atelectasis left base. Lines and tubes in good position. Physical Exam - Physical Exam General Appearance: alert (Post extubation), no apparent distress EENT: other (Nasal cannula at 4 L post extubation) Neck: normal inspection (No JVD. Right triple-lumen in IJ.) Respiratory: lungs clear (Anteriorly), decreased breath sounds (At the bases), rales (Few, left face greater than right), No rhonchi, No wheezing Cardiac/Chest: regular rate, rhythm, other (Distant heart tones) Abdomen: non-tender, soft, No normal bowel sounds (Present, decreased) Pelvic Exam: other (Andrea catheter in place, somewhat decreased urine output) Skin: warm/dry, pallor Lymphatic: no adenopathy Extremities: pedal edema (Trace +) Neuro/Psych: no motor/sensory deficits (Moves all extremities. 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
[2016-12-27] MEDS ORDERED: LEVALBUTEROL 0.63 MG/3 ML DEYVIAL IH PRN (17:07)
[2016-12-27] MEDS: INSULIN LISPRO 100 UNIT/1 ML VIAL STANDARD SC SCH (18:14)
[2016-12-27 18:33] LABS: POTASSIUM 4.1 mEq/L (3.5-5.2)
[2016-12-28] MEDS: KETOROLAC 15 MG/1 ML SDV IVP SCH (00:07)
[2016-12-28] MEDS: HYDROCODONE/APAP 5/325 TAB PO PRN ×6 (04:37→22:28)
[2016-12-28] MEDS: HEPARIN 5,000 UNIT/0.5 ML SYR SC SCH ×3 (06:08→21:04)
[2016-12-28] MEDS: ceFAZolin 2 GM/DEXTROSE 100 ML IV SCH (06:09)
[2016-12-28 06:12] LABS: % IMMATURE GRANULYOCYTES 0.7 % (0.0-1.1); ABSOLUTE IMMATURE GRANULOCYTES 0.14 10^3/uL (0.00-0.10); ADD DIFF? NO; ADD MORPH? NO; ADD SCAN? NO; ATYPICAL LYMPHOCYTE FLAG 0 (0-99); FRAGMENT RBC FLAG 0 (0-99); HEMATOCRIT 27.8 % (38.0-47.0); HEMOGLOBIN 8.8 g/dL (12.6-16.3); LEFT SHIFT FLG 0 (0-99); LIPEMIA HEMOLYSIS FLAG 80 (0-99); MEAN CELL HEMOGLOBIN 27.3 pg (27.9-34.1); MEAN CELL HEMOGLOBIN CONCENTR. 31.7 g/dL (32.4-36.7); MEAN CELL VOLUME 86.3 fL (81.5-99.8); MEAN PLATELET VOLUME 11.5 fL (8.7-11.7); PLATELET CLUMPS FLAG 0 (0-99); PLATELET COUNT 132 10^3/uL (150-400); RED BLOOD CELL COUNT 3.22 10^6/uL (4.18-5.33); RED CELL DISTRIBUTION WIDTH 16.8 % (11.5-15.2)
[2016-12-28 06:29] LABS: ANION GAP 9 mEq/L (8-16); CALCIUM 8.3 mg/dL (8.5-10.4); CARBON DIOXIDE 23 mEq/l (22-31); CHLORIDE 110 mEq/L (97-110); CREATININE 0.8 mg/dL (0.6-1.0); GLOMERULAR FILTRATION RATE > 60; GLUCOSE 159 mg/dL (70-100); POTASSIUM 4.5 mEq/L (3.5-5.2); SODIUM 142 mEq/L (134-144)
[2016-12-28] MEDS: SENNOSIDES/DOCUSATE SODIUM TAB PO SCH ×2 (07:56→21:04)
[2016-12-28] MEDS: ASPIRIN 81 MG CHEWABLE TAB PO SCH (07:57)
[2016-12-28] MEDS: MUPIROCIN 2% 22 GM OINT NS SCH (07:57)
[2016-12-28] MEDS: CHLORHEXIDINE GLUCONATE 15 ML UDL PO SCH (07:58)
--- NOTE | 2016-12-28 08:21 | SOAPPROG ---
SOAP Progress Note Assessment/Plan: Assessment: POD#2 Hemiarch and ascending aorta replacement with sinotubular reduction using a #24 Hemashield graft, prophylactic AtriClip LLAA [place] aorta syndrome - s/p hemiarch and ascending aortic replacement under deep hypothermic circulatory arrest with rt axillary cannulation and lowflow antegrade cerebral perfusion. Remarkably stable early postop course. BP control with BB as tolerated. Antithrombotic prophylaxis with ASA alone. F/U imaging of descending thoracic aorta prior to discharge and at 3 months. Moderate AI - of structurally normal AV. Competence restored with sinotubular reduction. Suspected COPD - Mild to moderate, secondary to longstanding tobacco abuse ( 1ppd x 40yrs, quitting in Sep). Extubated yest without incident. Bronchodilators and mucolytics prn. Outpt PFTs when recovered form surgery. Hx recent CVA with residual dysarthria and RUE weakness - No apparent postop neurologic dysfx or dysphagia. PT/OT/ADVISOR CONSULTANT following. Acute expected blood loss anemia - Stable. No blood products transfused. VTE prophylaxis with SQ hep. DM2 - Recently diagnosed. Controlled on Metformin. Preop A1c 7.2%. Postop hyperglycemia managed with insulin gtt, transitioning to SSI. Likely can restart 1/2 dose metformin tomorrow. Plan: Begin lasix 40 mg BID. Begin metoprolol 12.5 mg BID. Inc activity and pulm toilet. Tx to PCU later today. Baseline postop echo on Fri. CTA chest on 12/28/16 08:20 Subjective: Doing ok. No speech/swallow difficulties or limb weakness. Satisfactory analgesia. Objective: Vital Signs Temp Pulse Resp BP Pulse Ox 36.6 C 70 18 120/60 94 12/28/16 08:00 12/28/16 08:00 12/28/16 08:00 12/28/16 08:00 12/28/16 08:00 Laboratory Results 12/28/16 06:00 12/28/16 06:00 12/27/16 12/28/16 12/29/16 05:59 05:59 05:59 Intake Total 1763 1750 Output Total 2076 1500 450 Balance -313 250 -450 Normal swallow eval yest and diet started. Stable rhythm and BP. Occ PVC, no tachycardia. Moderate suppl O2 req, 4-5 Lpm. CTOP thinning. Suboptimal fluid balance. +8kg overall. Stable labs. Physical Exam - Physical Exam General Appearance: alert, no apparent distress Respiratory: crackles (bases), other (blakes x 3 to bulb suction, serosang drainage.) Cardiac/Chest: regular rate, rhythm, other (Sternum grossly stable. 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
[2016-12-28] MEDS: PANTOPRAZOLE SODIUM 40 MG in NS 100 ML IV SCH (09:24)
[2016-12-28] MEDS: LEVOTHYROXINE 112 MCG TAB PO SCH (09:24)
[2016-12-28] MEDS: INSULIN LISPRO 100 UNIT/1 ML VIAL STANDARD SC SCH ×3 (09:52→23:06)
[2016-12-28] MEDS ORDERED: KETOROLAC 15 MG/1 ML SDV IVP ONE ×2 (11:55→19:00)
[2016-12-28] MEDS: FUROSEMIDE 40 MG TAB PO SCH (14:43)
--- NOTE | 2016-12-28 15:09 | PDINTPN ---
Senior Chemist Progress Note Assessment/Plan: Assessment: Status post open heart surgery with aortic aneurysm repair and aortic valve repair. Doing well. Postop respiratory failure, resolved. Extubated 4/7 AM. History of tobacco abuse, probable mild to moderate COPD. This needs to be evaluated as an outpatient. History of pulmonary nodules: To be followed as an outpatient. DVT prophylaxis: Subcu heparin GI prophylaxis: Pantoprazole History of previous stroke Plan: Can transfer to PCU status today. Continue to work with PT/OT. Laboratory and chest x-ray will be followed. Continue present medications, Xopenex, oxygen. Cardiac issues per [facility]. Will need outpatient pulmonary follow -up for her lung nodules and pulmonary status. This can be done after she completed cardiac rehab. Subjective: Doing well. Denies significant shortness of breath. Able to to cough better today. Bringing up a small amount of mucus occasionally. Denies wheezing. Objective: Vital Signs Temp Pulse Resp BP Pulse Ox 36.7 C 69 12 115/57 L 93 12/28/16 12:00 12/28/16 12:00 12/28/16 12:00 12/28/16 12:00 12/28/16 12:00 Laboratory Results 12/28/16 06:00 12/28/16 06:00 12/27/16 12/28/16 12/29/16 05:59 05:59 05:59 Intake Total 1763 1750 Output Total 2076 1500 600 Balance -313 250 -600 Physical Exam - Physical Exam General Appearance: alert, no apparent distress EENT: other (Nasal cannula at 4-5 L) Neck: normal inspection (No JVD) Respiratory: lungs clear (Anteriorly), decreased breath sounds (At bases), rales (Few rales at bases), No rhonchi, No wheezing Cardiac/Chest: regular rate, rhythm (Distant heart tones) Abdomen: normal bowel sounds, non-tender, soft Skin: warm/dry, pallor Lymphatic: no adenopathy Extremities: pedal edema (Trace) Neuro/Psych: No no motor/sensory deficits (Mild weakness on right side secondary to previous stroke), No cognition abnormalities ICD10 Worksheet Patient Problems: Problems Problem Status Onset Diabetes 1.5, managed as type 2 Acute Aortic aneurysm, descending Chronic 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
[2016-12-28] MEDS: METOPROLOL TARTRATE 25 MG TAB PO SCH (21:04)
[2016-12-28] MEDS: traMADol 50 MG TAB PO PRN (22:28)
[2016-12-29] MEDS: traMADol 50 MG TAB PO PRN ×2 (04:23→09:24)
[2016-12-29] MEDS: LEVOTHYROXINE 112 MCG TAB PO SCH (04:23)
[2016-12-29] MEDS: HYDROCODONE/APAP 5/325 TAB PO PRN ×4 (04:24→21:10)
[2016-12-29] MEDS: HEPARIN 5,000 UNIT/0.5 ML SYR SC SCH ×3 (05:59→21:11)
[2016-12-29 06:22] LABS: % IMMATURE GRANULYOCYTES 0.7 % (0.0-1.1); ABSOLUTE IMMATURE GRANULOCYTES 0.11 10^3/uL (0.00-0.10); ADD DIFF? NO; ADD MORPH? NO; ADD SCAN? NO; ATYPICAL LYMPHOCYTE FLAG 0 (0-99); FRAGMENT RBC FLAG 0 (0-99); HEMATOCRIT 26.3 % (38.0-47.0); HEMOGLOBIN 8.5 g/dL (12.6-16.3); LEFT SHIFT FLG 0 (0-99); LIPEMIA HEMOLYSIS FLAG 80 (0-99); MEAN CELL HEMOGLOBIN 27.4 pg (27.9-34.1); MEAN CELL HEMOGLOBIN CONCENTR. 32.3 g/dL (32.4-36.7); MEAN CELL VOLUME 84.8 fL (81.5-99.8); MEAN PLATELET VOLUME 11.5 fL (8.7-11.7); PLATELET CLUMPS FLAG 0 (0-99); PLATELET COUNT 132 10^3/uL (150-400); RED CELL DISTRIBUTION WIDTH 16.8 % (11.5-15.2)
[2016-12-29 06:48] LABS: ANION GAP 6 mEq/L (8-16); CALCIUM 8.4 mg/dL (8.5-10.4); CARBON DIOXIDE 27 mEq/l (22-31); CHLORIDE 108 mEq/L (97-110); CREATININE 0.8 mg/dL (0.6-1.0); GLOMERULAR FILTRATION RATE > 60; GLUCOSE 130 mg/dL (70-100); POTASSIUM 4.3 mEq/L (3.5-5.2); SODIUM 141 mEq/L (134-144)
--- NOTE | 2016-12-29 08:32 | SOAPPROG ---
SOAP Progress Note Assessment/Plan: Assessment: POD#3 Hemiarch and ascending aorta replacement with sinotubular reduction using a #24 Hemashield graft, prophylactic AtriClip LLAA [place] aorta syndrome - s/p hemiarch and ascending aortic replacement under deep hypothermic circulatory arrest with rt axillary cannulation and lowflow antegrade cerebral perfusion. Remarkably stable early postop course. BP control with BB as tolerated. Antithrombotic prophylaxis with ASA alone. F/U imaging of descending thoracic aorta prior to discharge and at 3 months. Moderate AI - of structurally normal AV. Competence restored with sinotubular reduction. Suspected COPD - Mild to moderate, secondary to longstanding tobacco abuse ( 1ppd x 40yrs, quitting in Sep). Extubated POD#1 without incident. Bronchodilators and mucolytics prn. Outpt PFTs when recovered form surgery. Hx recent CVA with residual dysarthria and RUE weakness - No apparent postop neurologic dysfx or dysphagia. PT/OT/CROP SPECIALIST following. Acute expected blood loss anemia - Stable. No blood products transfused. VTE prophylaxis with SQ hep. DM2 - Recently diagnosed. Controlled on Metformin. Preop A1c 7.2%. Postop hyperglycemia managed with insulin gtt, transitioning to SSI. Plan restart Metformin tonight. Plan: Relax diuresis to once daily. Cont metoprolol 12.5 mg BID. TCPW, mediastinal and rt pleural rati d/cd. Anticipate left pleural arti removal tomorrow. Resume home regimen metformin. Inc activity and pulm toilet. Baseline postop echo on Fri. CTA chest on Fri. Dispo - Anticipate home on . 12/29/16 08:28 Subjective: Doing ok. Intermittent sharp rt sided tube pains, not interfering with rehab. 2 am walks well tolerated. Objective: Vital Signs Temp Pulse Resp BP Pulse Ox 36.9 C 67 20 122/55 H 91 L 12/29/16 07:59 12/29/16 07:59 12/29/16 07:59 12/29/16 07:59 12/29/16 07:59 Laboratory Results 12/29/16 06:05 12/29/16 06:05 12/28/16 12/29/16 12/30/16 05:59 05:59 05:59 Intake Total 1750 1050 Output Total 1500 2380 Balance 250 -1330 - Pending Discharge Pending Discharge Within 48 Hours: Yes Pending Discharge Date: 12/31/16 Pending Discharge Time: 11:00 Physical Exam - Physical Exam General Appearance: alert, no apparent distress Respiratory: lungs clear, other (Blakes x 3 to bulb suction, thin serosang drainage. Med and rt pl tube removed without incident) Cardiac/Chest: regular rate, rhythm, other (Sternum grossly stable. Sternotomy and rt ax incision CDI. RUE CSI intact. 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
[2016-12-29] MEDS: ASPIRIN 81 MG CHEWABLE TAB PO SCH (09:25)
[2016-12-29] MEDS: SENNOSIDES/DOCUSATE SODIUM TAB PO SCH ×2 (09:25→21:11)
[2016-12-29] MEDS: PANTOPRAZOLE SODIUM 40 MG TAB PO SCH (09:26)
[2016-12-29] MEDS: METOPROLOL TARTRATE 25 MG TAB PO SCH ×2 (09:26→21:13)
[2016-12-29] MEDS: ATORVASTATIN CALCIUM 40 MG TAB PO SCH (09:27)
[2016-12-29] MEDS: INSULIN LISPRO 100 UNIT/1 ML VIAL STANDARD SC SCH ×3 (09:28→18:34)
[2016-12-29] MEDS: FUROSEMIDE 40 MG TAB PO SCH ×2 (10:44→11:50)
[2016-12-29] MEDS: POTASSIUM CL 20 MEQ TAB PO SCH (11:50)
--- NOTE | 2016-12-29 15:37 | SOAPPROG ---
SOAP Progress Note Assessment/Plan: Assessment: Status post open heart surgery with aortic aneurysm repair and aortic valve repair. Doing well. Postop respiratory failure, resolved. Extubated 4/7 AM. History of tobacco abuse, probable mild to moderate COPD. This needs to be evaluated as an outpatient. History of pulmonary nodules: To be followed as an outpatient. DVT prophylaxis: Subcu heparin GI prophylaxis: Pantoprazole History of previous stroke Plan: Continue postop cardiac care as per CVS. Continue IS, bronchopulmonary therapies. She will likely need to go home on oxygen. Inhalers may not be of significant benefit for her. I will plan on following her in the office as an outpatient after her her initial cardiac rehabilitation has been accomplished to assess her lung function and to begin follow-up of her pulmonary nodules. She should make an appointment with our office with complete pulmonary function studies in 6-8 weeks. [phone]. I will sign off at this point. Please call the Pulmonary service/Dr Arias if further assistance is needed prior to discharge. 01/09/17 17:25 Subjective: Doing well. Denies significant shortness of breath. No wheezing, no congestion. No limiting chest pain Objective: Vital Signs Temp Pulse Resp BP Pulse Ox 36.6 C 75 20 130/62 H 89 L 12/29/16 12:00 12/29/16 12:00 12/29/16 12:00 12/29/16 12:00 12/29/16 12:00 Laboratory Results 12/29/16 06:05 12/29/16 06:05 12/28/16 12/29/16 12/30/16 05:59 05:59 05:59 Intake Total 1750 1050 736 Output Total 1500 2380 550 Balance 250 -1330 186 CXR: Poor inspiration. Some atelectasis at the left base retrocardiac. Physical Exam - Physical Exam General Appearance: alert, no apparent distress EENT: other (Nasal cannula at 3 L) Neck: normal inspection Respiratory: lungs clear (Anteriorly), decreased breath sounds (At the bases), rales (Rales present, left base greater than right), No rhonchi Cardiac/Chest: regular rate, rhythm Abdomen: normal bowel sounds, non-tender, soft Skin: warm/dry, pallor Extremities: pedal edema (Trace) Neuro/Psych: no motor/sensory deficits (Moves all extremities. 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
[2016-12-29] MEDS ORDERED: metFORMIN HCL 500 MG TAB PO SCH (18:00)
[2016-12-30] MEDS: traMADol 50 MG TAB PO PRN (03:58)
[2016-12-30] MEDS: LEVOTHYROXINE 112 MCG TAB PO SCH (03:59)
[2016-12-30] MEDS: HEPARIN 5,000 UNIT/0.5 ML SYR SC SCH ×3 (06:23→22:38)
[2016-12-30] MEDS: HYDROCODONE/APAP 5/325 TAB PO PRN ×4 (06:23→21:44)
[2016-12-30 07:02] LABS: ANION GAP 7 mEq/L (8-16); CALCIUM 8.7 mg/dL (8.5-10.4); CARBON DIOXIDE 29 mEq/l (22-31); CHLORIDE 105 mEq/L (97-110); CREATININE 0.7 mg/dL (0.6-1.0); GLOMERULAR FILTRATION RATE > 60; GLUCOSE 124 mg/dL (70-100); POTASSIUM 4.1 mEq/L (3.5-5.2); SODIUM 141 mEq/L (134-144)
--- NOTE | 2016-12-30 08:14 | SOAPPROG ---
SOAP Progress Note Assessment/Plan: POD #4: Hemiarch and ascending aorta replacement with sinotubular reduction using a #24 Hemashield graft and prophylactic exclusion of left atrial appendage with AtriClip Ascending and transverse aortic aneurysm with moderate AI s/p ascending aorta and hemiarch replacement with reduction of sinotubular junction. - 2D ECHO and CT aorta today to evaluate post-op changes - Chandan x 1 not at removal criteria today - anticipate tomorrow Acute blood loss anemia - Stable Descending aortic aneurysm - BP control and outpatient patient management with serial CTs Pre-operative CVA with residual dysarthria and RUE weakness - No post-op deficiencies - continue PT/OT DM type II, recently diagnosed (HgbA1c 7.2) - Continue home Metformin (held for 48 hours d/t IV contrast exposure - restart Friday) Suspected COPD secondary to tobacco abuse - Outpatient workup once recovered from surgery Disposition - Home Friday without home services 12/30/16 10:56 Subjective: Feels well. No RUE weakness or dysarthria. Pain under control. No SOB. Objective: Vital Signs Temp Pulse Resp BP Pulse Ox 36.8 C 64 18 117/58 L 95 12/30/16 03:57 12/30/16 03:57 12/30/16 03:57 12/30/16 03:57 12/30/16 03:57 Laboratory Results 12/29/16 06:05 12/30/16 06:30 12/29/16 12/30/16 12/31/16 05:59 05:59 05:59 Intake Total 1050 1116 Output Total 2380 3375 Balance -1330 -2259 Physical Exam - Physical Exam General Appearance: WD/WN, alert, no apparent distress EENT: normal ENT inspection Neck: normal inspection Respiratory: No respiratory distress Cardiac/Chest: regular rate, rhythm Abdomen: non-tender, soft, No distended Skin: normal color, warm/dry Extremities: No pedal edema Neuro/Psych: no motor/sensory deficits, alert, normal mood/affect, oriented x 3 ICD10 Worksheet Patient Problems: Problems Problem Status Onset Aortic aneurysm Acute Diabetes 1.5, managed as type 2 Acute S/P aortic aneurysm repair 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
[2016-12-30] MEDS ORDERED: metFORMIN HCL 500 MG TAB PO SCH (09:00)
[2016-12-30] MEDS: INSULIN LISPRO 100 UNIT/1 ML VIAL STANDARD SC SCH ×3 (09:26→17:47)
--- NOTE | 2016-12-30 09:40 | ECHO ---
[id number] + + [address] : : [place] [address] : : [phone] + + Adult Echocardiographic Report + ------+ :Name: David STEINERgustavo Date: 12/30/2016 08:08 AM : : Hospital Admission Number: [id number] Locatio n: 207: :: 1950 Gender: Female Height: 65 in : :Age: 66 yrs Race: WH Weight: 180 lb : :Reason For Study: F/U AI/S/P reduction of sinotubular : :junction/ascending AO graft BSA: 1.9 meters 2 : + ------+ MMode/2D Measurements \T\ Calculations IVSd: 0.97 cm LVIDd: 4.1 cm FS: 40.2 % Ao root diam: LVPWd: 0.98 cm LVIDs: 2.4 cm EDV(Teich): 3.5 cm 74.1 ml LA dimension: ESV(Teich): 2.6 cm 21.2 ml EF(Teich): 71.4 % LVLd ap4: 7.1 cm SV(MOD-sp4): EDV(MOD-sp4): 45.0 ml 61.0 ml LVLs ap4: 5.8 cm ESV(MOD-sp4): 16.0 ml EF(MOD-sp4): 73.8 % Normal Measurement Values: + + :LVIDd (3.5-5.7cm) IVSd (0.6-1.1cm) LVPWd (0.6-1.1cm) Aortic Root (2.0-3.7cm)Left Atrium (1.5-4.0cm): :LV Vol(d) (76-115ml) LV Vol(s) (29-48ml) Ejec Fraction (50-65%)PV Sim (0.6- 1.2m/s) TV Sim (0.4-1.0m/s) : :MV E Sim (0.8-1.0m/s)MV A Sim (0.3-1.0m/s)LVOT Sim (0.7-1.2m/s) Asc Ao Sim ( 0.9-1.8m/s) : + + Doppler Measurements \T\ Calculations MV E max sim: 90.3 cm/sec Ao mean P.8 mmHg TR max sim: 225.3 cm/sec MV A max sim: 69.1 cm/sec Ao V2 mean: 114.5 cm/sec TR max P.3 mmHg MV E/A: 1.3 Ao V2 VTI: 30.2 cm RAP systole: 5.0 mmHg RVSP(TR): 25.3 mmHg Left Ventricle The left ventricle is normal in size. There is borderline concentric left ventricular hypertrophy. Left ventricular systolic function is normal. Ejection Fraction = 70-75%. No regional wall motion abnormalities noted. Right Ventricle The right ventricle is normal in size and function. Atria The left atrium is mildly dilated. Right atrial size is normal. The interatrial septum is intact with no evidence for an atrial septal defect. Mitral Valve The mitral valve is normal in structure and function. There is no evidence of mitral valve prolapse. There is no mitral valve stenosis. There is mild mitral regurgitation. Tricuspid Valve Normal tricuspid valve. There is trace to mild tricuspid regurgitation. Right ventricular systolic pressure is normal. Aortic Valve The aortic valve opens well. There is no aortic stenosis. There is no aortic insufficiency. Pulmonic Valve The pulmonic valve is normal in structure and function. There is no pulmonic valvular regurgitation. Great Vessels The aortic root is normal size. Pericardium/Pleural Fat pad vs. trace anterior pericardial effusion with echogenicity within. Conclusion A complete two-dimensional transthoracic echocardiogram was performed (2D, M-mode, Doppler and color flow Doppler). Left ventricular systolic function is normal. There is borderline concentric left ventricular hypertrophy. Ejection Fraction = 70-75%. The left atrium is mildly dilated. There is mild mitral regurgitation. There is trace to mild tricuspid regurgitation. Right ventricular systolic pressure is normal. There is no aortic insufficiency. Fat pad vs. trace anterior pericardial effusion with echogenicity within. Final Reading Physician: Simran Castrejon signed on 12/30/2016 09:40 AM Ordering Physician: Licha Don Performed By: Kathy Barajas RDCS
[2016-12-30] MEDS: POTASSIUM CL 20 MEQ TAB PO SCH (09:47)
[2016-12-30] MEDS: PANTOPRAZOLE SODIUM 40 MG TAB PO SCH (09:48)
[2016-12-30] MEDS: ASPIRIN 81 MG CHEWABLE TAB PO SCH (09:48)
[2016-12-30] MEDS: METOPROLOL TARTRATE 25 MG TAB PO SCH ×2 (09:48→21:44)
[2016-12-30] MEDS: SENNOSIDES/DOCUSATE SODIUM TAB PO SCH ×2 (09:49→21:44)
[2016-12-30] MEDS: ATORVASTATIN CALCIUM 40 MG TAB PO SCH (09:49)
[2016-12-30] MEDS: FUROSEMIDE 40 MG TAB PO SCH (09:50)
[2016-12-30] MEDS ORDERED: IOPAMIDOL (ISOVUE 370) 100 ML BTL IV ONE (16:50)
[2016-12-31] MEDS: LEVOTHYROXINE 112 MCG TAB PO SCH (04:07)
[2016-12-31] MEDS: HYDROCODONE/APAP 5/325 TAB PO PRN ×2 (04:07→06:32)
[2016-12-31] MEDS: HEPARIN 5,000 UNIT/0.5 ML SYR SC SCH (06:21)
--- NOTE | 2016-12-31 07:41 | SOAPPROG ---
SOAP Progress Note Assessment/Plan: Assessment: POD#5 Hemiarch and ascending aorta replacement with sinotubular reduction using a #24 Hemashield graft, prophylactic AtriClip LLAA [place] aorta syndrome - s/p hemiarch and ascending aortic replacement under deep hypothermic circulatory arrest with rt axillary cannulation and lowflow antegrade cerebral perfusion. Remarkably stable early postop course. BP control with BB as tolerated. Antithrombotic prophylaxis with ASA alone. CTA yest notable for nl caliber asc ao and no distal dissection. Ongoing surveillance imaging of descending thoracic aorta TBD at 3 months. Moderate AI - of structurally normal AV. Competence restored with sinotubular reduction. Suspected COPD - Mild to moderate, secondary to longstanding tobacco abuse ( 1ppd x 40yrs, quitting in Sep). Extubated POD#1 without incident. Bronchodilators, mucolytics, and suppl O2 prn. Outpt PFTs when recovered form surgery. Hx recent CVA with residual dysarthria and RUE weakness - No apparent postop neurologic dysfx or dysphagia. Steady functional gains. Acute expected blood loss anemia - Stable. No blood products transfused. DM2 - Recently diagnosed. Controlled on Metformin. Preop A1c 7.2%. Postop hyperglycemia managed with insulin gtt, transitioning to SSI/home Metformin. Plan: Relax diuresis to lasix 20mg/KCl 10mEq once daily. Switch metoprolol to home dose Atenolol. Remove pleural arti this afternoon. Resume home regimen metformin tomorrow night. Cont inc activity and pulm toilet. Dispo - Anticipate home this pm. Instructions re diet, meds, activity, wound care and f/u to be reviewed in presence of son. 12/31/16 07:38 Subjective: Feels well. Tolerating light activity and stairwork with relative ease. Eager for home. Objective: Vital Signs Temp Pulse Resp BP Pulse Ox 36.7 C 72 18 118/59 L 95 12/31/16 04:00 12/31/16 04:00 12/31/16 04:00 12/31/16 04:00 12/31/16 04:00 Laboratory Results 12/29/16 06:05 12/30/16 06:30 12/30/16 12/31/16 01/01/17 05:59 05:59 05:59 Intake Total 1116 280 Output Total 3375 2180 Balance -2259 -1900 Cardiorespiratory status stable. HR and BP well controlled. O2 down to 3lpm. Wt [address] yest -> sm left pl effusion. Pleural drain patent and nearing removal criteria. - Pending Discharge Pending Discharge Within 24 Hours: Yes Pending Discharge Date: 01/01/17 Pending Discharge Time: 11:00 Physical Exam - Physical Exam General Appearance: alert, no apparent distress Respiratory: lungs clear (grossly), other (pleural arti to bulb suction, clear serous drainage) Cardiac/Chest: regular rate, rhythm, other (Sternum grossly stable. Sternotomy and rt ax incision CDI. 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
[2016-12-31] MEDS ORDERED: FUROSEMIDE 20 MG TAB PO SCH (09:00)
[2016-12-31] MEDS: INSULIN LISPRO 100 UNIT/1 ML VIAL STANDARD SC SCH ×2 (09:00→12:04)
[2016-12-31] MEDS ORDERED: ASPIRIN 325 MG TAB PO SCH (09:00)
[2016-12-31] MEDS ORDERED: POTASSIUM CL 10 MEQ TAB PO SCH (09:00)
[2016-12-31] MEDS: SENNOSIDES/DOCUSATE SODIUM TAB PO SCH (09:15)
[2016-12-31] MEDS: ATORVASTATIN CALCIUM 40 MG TAB PO SCH (09:16)
[2016-12-31] MEDS ORDERED: ATENOLOL 25 MG TAB PO SCH (13:00)
[2016-12-31 14:50] VITALS: RESP 20
[2016-12-31 15:01] VITALS: BP 90/53; PULSE 68; TEMP 99.3; O2SAT 95
--- NOTE | 2016-12-31 16:16 | PDDCSUM ---
Discharge Summary Discharge Summary: DATE OF ADMISSION: 12/26/16 DATE OF DISCHARGE: 12/31/16 DISPOSITION: Home, self-care PRINCIPAL ADMISSION DIAGNOSES: 1. Emely aorta syndrome 2. Moderate aortic valve insufficiency PRINCIPAL DISCHARGE DIAGNOSES: 1. Status post ascending aortic and hemiarch replacement with a dacron interposition graft 2. Status post correction of aortic valve insufficiency by sinotubular junction reduction 3. Status post prophylactic clip ligation of the left atrial appendage 4. Residual descending thoracic aortic aneurysm 5. Acute expected blood loss anemia 6. Suspected COPD HISTORY OF PRESENT ILLNESS: 66 yo hypertensive female incidentally discovered to have emely aorta syndrome during evaluation and treatment of a left subcortical stroke 3 months ago. Aorta diffusely dilated from the sinotubular junction to the hiatus, with the greatest enlargement proximally (5.1-5.4 cm) up to the level of the arch. Associated with moderate AI (PHt 745msec) of a trileaflet aortic valve. No , LVE, LVSD, obstructive CAD, CHF or documented arrhythmias. Scheduled for possible elephant trunk procedure after adequately rehabilitated from her stroke. PERTINENT PAST MEDICAL HISTORY: 1. CVA in Sep 2016, treated at [facility] in [place]. Residual of dysarthria and right limb weakness when tired. 2. Mild carotid and coronary artery disease - no stenosis > 20%. 3. Essential hypertension 4. Dyslipidemia 5. Hypothyroidism 6. Type 2 diabetes mellitus, controlled, by preop A1c of 7.1%. 7. Former smoker - 1ppd x 40 yrs, successfully quitting after her stroke and incidental discovery small bilateral pulmonary nodules. MEDICATIONS ON ADMISSION: ASA 325 mg daily, Lipitor 40 mg daily, Atenolol 25 mg daily, Levothyroxine 112 mcg daily, Metformin 1,000 mg qam and 500 mg qpm, , Vitamin D2 - 50,000 units once weekly, and an herbal supplement once daily ALLERGIES: NKDA CONSULTANTS: Pulmonology/critical care (Bladimir) PROCEDURES/IMAGIN/6 (Tyra): Ascending aortic and hemiarch replacement with a 24 mm Hemashield graft. Deep hypothermic circulatory arrest with right axillary cannulation and low-flow antegrade cerebral perfusion. Correction of aortic valve insufficiency by reduction of sinotubular junction. Prophylactic AtriClip ligation of the left atrial appendage. 12/30 (Chidi): Transthoracic echocardiogram 12/30 Chest/thorax CTA ABBREVIATED HOSPITAL COURSE BY ACTIVE PROBLEM LIST: 1. Emely aorta syndrome - s/p hemiarch and ascending aortic replacement under DHCA. Remarkably stable early postop course. BP control with BB as tolerated. Antithrombotic prophylaxis with ASA alone. Postop CTA notable for nl caliber asc ao and no distal dissection. Moderate amount of cystic medial necrosis identified by pathology. Surveillance imaging of descending thoracic aorta in 1 yr. 2. Moderate AI - of structurally normal AV. Competence restored with sinotubular reduction. 3. Suspected COPD - Mild to moderate, secondary to longstanding tobacco abuse. Extubated POD#1 without incident. Followed by pulm. Bronchodilators, mucolytics , and suppl O2 prn. Outpt PFTs when recovered form surgery. 4. Hx recent CVA with residual dysarthria and RUE weakness - No apparent postop neurologic dysfx or dysphagia. Advanced to regular diet POD#1. Steady functional gains. 5. Acute expected blood loss anemia - Stable. No blood products transfused. 6. DM2 - Recently diagnosed. Controlled on Metformin. Postop hyperglycemia managed with insulin gtt, transitioning to SSI/home Metformin. Metformin held after CTA as per protocol. DISCHARGE CLINICAL INFORMATION: Sternum grossly stable. Sternotomy and left axillary incision CDI, sutured, + Dermabond. HR . SBP . SpO2 83% RA and > 92% on 3 Lpm O2. Wt 2 kg under admission at 81.6 kilos. Hgb 8.5, HCT 26.3, Plt 132, Na 141, K 4.1, Cr 0.7 FSBs-170s DISCHARGE MEDICATIONS: As on admission with the following adjustments: Hold metformin thru tomorrow evening, then resume as before hospitalization. NEW prescriptions: 1. Lasix 20mg daily x 5 more days. 2. KlorCon 10mEq with lasix. 3. Tramadol 50 mg, 1/2 to 2 tabs q 8hrs prn breakthrough pain. 4 Oxygen @ 3 Lpm continuously, or as directed by SpO2. OTC: 1. Tylenol up to 3,000 mg daily for mild incisional discomfort. 2. Ibuprofen up to 2,400 mg daily for more moderate discomfort, not to exceed > 1 week of regular use. FOLLOW UP APPOINTMENTS: 1. CV surgery: with Dr Mary at [facility] on 01/07 at 10am. 2. Pulmonology: with Dr Garrison and [facility] in 6-8 weeks. Followup PFTs and surveillance plan pulmonary nodules. FOLLOW UP TESTING: CXR prior to surgical appointment. CTA chest in 1 yr
[2017-01-03] MEDS ORDERED: ERGOCALCIFEROL 50,000 I.UNIT CAP PO SCH (09:00)
== END 2016-12-31 18:02 | disposition home or self-care (01) | DRG 220 ==
LOC: F2N 06:58 → F2W 12-28 17:37
PROVIDERS: ADMIT Thoracic Surgery (Cardiothoracic Vascular Surgery); ATTEND Thoracic Surgery (Cardiothoracic Vascular Surgery)
PROC: 02RW0JZ Replacement of Thoracic Aorta, Descending with Synthetic Substitute, Open Approach (ICD-10-PCS; principal; 2016-12-26 08:30)
PROC: 4A10X4G Monitoring of Central Nervous Electrical Activity, Intraoperative, External Approach (ICD-10-PCS; principal; 2016-12-26 08:30)
PROC: 02QF0ZZ Repair Aortic Valve, Open Approach (ICD-10-PCS; principal; 2016-12-26 08:30)
PROC: 02L70ZK Occlusion of Left Atrial Appendage, Open Approach (ICD-10-PCS; principal; 2016-12-26 08:30)
PROC: 5A1221Z Performance of Cardiac Output, Continuous (ICD-10-PCS; principal; 2016-12-26 08:30)
DX: I71.2 Thoracic aortic aneurysm, without rupture (principal); I77.810 Thoracic aortic ectasia; I35.1 Nonrheumatic aortic (valve) insufficiency; D62 Acute posthemorrhagic anemia; J44.9 Chronic obstructive pulmonary disease, unspecified; R91.8 Other nonspecific abnormal finding of lung field; I10 Essential (primary) hypertension; E11.9 Type 2 diabetes mellitus without complications; E03.9 Hypothyroidism, unspecified; E78.5 Hyperlipidemia, unspecified; I69.322 Dysarthria following cerebral infarction; I69.331 Monoplegia of upper limb following cerebral infarction affecting right dominant side; Z87.891 Personal history of nicotine dependence
CPT/HCPCS: 82947-QW; 92610-GN; 97116-GP; 97161-GP; 97166-GO; 97530-GP; C1768; G8978-GP-CI; G8979-GP-CH; G8987-GO-CI; G8988-GO-CI; G8996-GN-CH; G8997-GN-CH; G8998-GN-CH; J0153; J0282; J0690; J1265; J1644; J1815; J1885; J2001; J2150; J2250; J2260; J2370; J2405; J2704; J2720; J2930; J3010; J7060; P9041; Q9967

== ENCOUNTER → 2017-01-07 | Outpatient (CLI) | payer OTHER | LOC: FIMAGING 11:44 | PROVIDERS: ATTEND Thoracic Surgery (Cardiothoracic Vascular Surgery) | DX: R06.02 Shortness of breath (principal); Z95.2 Presence of prosthetic heart valve; J90 Pleural effusion, not elsewhere classified ==

== ENCOUNTER → 2018-02-04 | Outpatient (CLI) | payer OTHER ==
[~2018-02-04] MED LIST changes: -ADENOSINE 6 MG/2 ML VIAL ONE; -ALBUMIN 5% 250 ML BOTTLE IV ONE; -AMINOCAPROIC ACID 5 GM/20 ML VIAL IV ONE; -AMINOCAPROIC ACID 5 GM/20 ML VIAL ONE; -AMIODARONE HCL 150 MG/3 ML VIAL ONE; -CALCIUM CHLORIDE 1 GM/10 ML INJ ONE; -CITRATE DEXTROSE SOLN 500 ML BAG MISC ONE; -CITRATE DEXTROSE SOLN 500 ML BAG ONE; -DOPamine/DEXTROSE/250 ML BAG IV ONE; -HEPARIN 10,000 UNIT/10 ML MDV ONE; -INSULIN REGULAR HUMAN 100 UNIT in NS 100 ML IV ONE; +IOPAMIDOL (ISOVUE 370) 100 ML BTL IV ONE; -LIDOCAINE 1% 2 ML INJ ONE; -LIDOCAINE 1% 5 ML SDV ID PRN; -LIDOCAINE 2% 100 MG/5 ML SYR ONE; -MAGNESIUM SULFATE 1 GM/2 ML VIAL ONE; -MANNITOL 25% 12.5 GM/50 ML VIAL IV ONE; -MILRINONE/DEXTROSE/100 ML BAG IV ONE; -MUPIROCIN 2% 22 GM OINT NS ONE; -NA BICARBONATE 50 MEQ/50 ML VIAL ONE; -NOREPINEPHRINE BITARTRATE 16 MG in NS 250 ML IV ONE; -NS 1,000 ML IV ONE; -PHENYLEPHRINE HCL 50 MG in NS 250 ML IV ONE; -POTASSIUM Cl (KCl) 20 MEQ/50 ML BAG IV ONE; -PROTAMINE SULFATE 50 MG/5 ML VIAL IVP ONE; -SODIUM BICARBONATE 20 MEQ, LIDOCAINE 1% 10 ML in NORMOSOL-R 1,000 ML MISC ONE; -ceFAZolin 1 GM VIAL ONE; -ceFAZolin 2 GM/DEXTROSE 100 ML IV ONE; -methylPREDNISolone SOD SUCC 1 GM/8 ML VIAL ONE; -niCARdipine/NACL 200 ML IV SCH; -niCARdipine/NACL/200 ML BAG IV ONE
== END ==
LOC: FIMAGING 07:48
PROVIDERS: ATTEND Thoracic Surgery (Cardiothoracic Vascular Surgery)
DX: I77.810 Thoracic aortic ectasia (principal); Z95.2 Presence of prosthetic heart valve; Z98.890 Other specified postprocedural states
CPT/HCPCS: 71275; Q9967